=== PATIENT | female | born 1980 | race Caucasian/White ===

== ENCOUNTER 2018-04-05 15:31 | Emergency (ER) | payer OTHER ==
[~2018-04-05] VITALS: Ht 165.1 cm; Wt 56.7 kg
[~2018-04-05 15:31] MED LIST: CIPROFLOXACIN500 M1 PO; EXCEDRIN CAPLE1 EACH PO; HYDROCODON-ACE1 EACH PO; IBUPROFEN 600600 M1 PO; MEDROLDOSEPACK PO; NOHOMEMEDICATIONS; NORCO 5-325 TA1 EACH PO; PENICILLIN VK250 MG PO; PYRIDIUM200 MG PO; TESSALON200 MG PO; ZPAK PO
[2018-04-05] MEDS ORDERED: MOBIC15 MG PO (16:13)
[2018-04-05] MEDS ORDERED: FLEXERIL PO (16:13)
[2018-04-05 16:28] VITALS: BP 101/61
== END 2018-04-05 16:29 | disposition home or self-care (01) ==
LOC: M.ERS 15:31
DX: M54.32 Sciatica, left side (principal); F17.210 Nicotine dependence, cigarettes, uncomplicated

== ENCOUNTER 2019-04-02 16:23 | Emergency (ER) | payer OTHER ==
[~2019-04-02] VITALS: Ht 165.1 cm; Wt 54.4 kg
[~2019-04-02 16:23] MED LIST changes: +FLEXERIL PO; +MOBIC15 MG PO
[2019-04-02 16:58] LABS: URINE BILIRUBIN NEGATIVE (Negative); URINE BLOOD NEGATIVE (Negative); URINE CLARITY CLEAR; URINE COLOR YELLOW; URINE GLUCOSE-RANDOM NEGATIVE (Negative); URINE KETONES NEGATIVE (Negative); URINE LEUKOCYTES-REFLEX NEGATIVE (Negative); URINE NITRITE-REFLEX NEGATIVE (Negative); URINE PROTEIN NEGATIVE (Negative); URINE SPECIFIC GRAVITY 1.025 (1.005-1.030); URINE UROBILINOGEN 0.2 E.U./dl (0.2-1.0)
[2019-04-02] MEDS ORDERED: MEDROL DOSPAK21 TA1 PO (17:47)
[2019-04-02] MEDS ORDERED: CYCLOBENZAPRINE5 MG PO (17:47)
[2019-04-02 18:11] VITALS: BP 112/72
== END 2019-04-02 18:12 | disposition home or self-care (01) ==
LOC: M.ERS 16:23
PROVIDERS: Nurse Practitioner Family
DX: M54.5 Low back pain (principal); F17.210 Nicotine dependence, cigarettes, uncomplicated

== ENCOUNTER 2021-10-13 21:54 | Emergency (ER) | payer OTHER ==
[~2021-10-13] VITALS: Ht 170.2 cm; Wt 56.7 kg
[~2021-10-13 21:54] MED LIST changes: +CYCLOBENZAPRINE5 MG PO; +MEDROL DOSPAK21 TA1 PO
[2021-10-13 22:48] LABS: URINE BILIRUBIN NEGATIVE (Negative); URINE BLOOD TRACE (Negative); URINE CLARITY CLEAR; URINE COLOR YELLOW; URINE GLUCOSE-RANDOM NEGATIVE (Negative); URINE KETONES NEGATIVE (Negative); URINE LEUKOCYTES NEGATIVE (Negative); URINE NITRITE NEGATIVE (Negative); URINE PROTEIN NEGATIVE (Negative); URINE SPECIFIC GRAVITY >= 1.030 (1.005-1.030)
[2021-10-13] MEDS ORDERED: DOXYCYCLINE 10100 M2 PO (23:21)
[2021-10-13 23:39] VITALS: BP 115/62
== END 2021-10-13 23:39 | disposition home or self-care (01) ==
LOC: M.ERS 21:54
PROVIDERS: Physician Assistant
DX: R30.0 Dysuria (principal); F17.210 Nicotine dependence, cigarettes, uncomplicated; Z98.51 Tubal ligation status